=== PATIENT | male | born 1970 | race African-American/Black ===

== ENCOUNTER 2021-09-09 07:32 | Inpatient (IN) | payer SELFPAY ==
[2021-09-09 08:07] LABS: #Eosinphils 0.1 10x3/uL (0.0-0.5); #Monocytes 0.5 10x3/uL (0.0-1.1); #Neutrophils 4.4 10x3/uL (1.5-8.4); %Basophils 0.3 % (0.0-2.0); %Lymphocytes 25.9 % (18.0-47.0); %Monocytes 7.6 % (0.0-10.0); %Neutrophils 63.8 % (40.0-75.0); Hemoglobin 14.7 g/dL (13.5-17.5); Mean Corpuscular HGB CONC 32.8 g/dL (32.0-36.0); Mean Corpuscular Hemoglobin 32.6 pg (27.0-33.0); Mean Corpuscular Volume 99.3 fl (81.2-95.1); Mean Platelet Volume 11.8 fl (7.4-10.4); Platelet Count 160 10x3/uL (150-450); RBC Distribution Width 13.2 % (11.5-14.5); Red Blood Cell (RBC) Count 4.51 10x6/uL (4.32-5.72); White Blood Cell (WBC) Count 6.9 10x3/uL (3.5-10.5)
[2021-09-09 08:56] LABS: CKMB 1.5 ng/mL (0-6.6)
[2021-09-09 09:01] LABS: ALT (SGPT) 32 U/L (8-55); AST (SGOT) 19 U/L (5-34); Albumin 4.1 g/dL (3.5-5.0); Alkaline Phosphatase 51 U/L (40-110); Anion Gap 12 mmol/L (10-20); BUN (Urea Nitrogen) 11 mg/dL (8.4-25.7); Calc. Creatinine Clearance 0 mL/min (70-130); Calcium 9.1 mg/dL (7.8-10.44); Carbon Dioxide 30 mmol/L (22-29); Chloride 103 mmol/L (98-107); Globulin 2.4 g/dL (2.4-3.5); Glucose 170 mg/dL (70-105); Potassium 4.1 mmol/L (3.5-5.1); Protein, Total 6.5 g/dL (6.0-8.3); Sodium 141 mmol/L (136-145)
[2021-09-09] MEDS ORDERED: Furosemide 100 MG/10 ML VIAL ONE (09:11)
[2021-09-09] MEDS ORDERED: Nitroglycerin 0.4 MG TAB (25 Tab Bottle) SL PRN (09:15)
[2021-09-09] MEDS ORDERED: Enoxaparin Sodium 100 MG/ML SYRINGE ONE (09:38)
[2021-09-09] MEDS ORDERED: Aspirin 325 MG TAB ONE (09:39)
[2021-09-09 09:40] LABS: SARS-CoV-2 NAA Rapid Test Not Detected (NotDetected)
[2021-09-09] MEDS ORDERED: Diltiazem 125 MG/25 ML ONE (09:43)
[2021-09-09] MEDS ORDERED: Diltiazem 125 MG in Sodium Chloride 0.9% 100 ML IVPB SCH (10:00)
[2021-09-09] MEDS ORDERED: Digoxin 0.5 MG/2 ML AMP SLOW IVP SCH ×2 (11:45→14:15)
[2021-09-09 12:44] LABS: Magnesium 1.7 mg/dL (1.6-2.6)
[2021-09-09 12:47] LABS: Troponin I 0.084 ng/mL (< 0.028)
[2021-09-09] MEDS ORDERED: Furosemide 40 MG/4 ML VIAL SLOW IVP SCH (14:00)
[2021-09-09] MEDS ORDERED: Metoprolol Tartrate 5 MG/5 ML VIAL IVP SCH (14:15)
[2021-09-09] MEDS ORDERED: Magnesium 2 GM/50 ML 2 GM in Sodium Chloride 0.9% 100 ML IVPB SCH (15:00)
[2021-09-09] MEDS ORDERED: Magnesium 2 GM/50 ML BAG (IN WATER) ONE (15:01)
[2021-09-09] MEDS ORDERED: Sodium Chloride 0.9% 100 ML ONE (15:02)
[2021-09-09] MEDS: Diltiazem 125 MG in Sodium Chloride 0.9% 100 ML IVPB SCH ×2 (17:22→20:14)
[2021-09-09] MEDS: Carvedilol 6.25 MG TAB PO SCH (17:35)
[2021-09-09] MEDS ORDERED: Magnesium 2 GM/50 ML 2 GM in Premix Bag 1 BAG IVPB SCH (18:00)
[2021-09-09 18:08] LABS: Hemoglobin A1c 6.5 % (4.0-6.0)
[2021-09-09] MEDS: Apixaban 5 MG TAB PO SCH (19:59)
[2021-09-09] MEDS ORDERED: Enoxaparin Sodium 80 MG/0.8 ML SYRINGE SC SCH (21:00)
[2021-09-09] MEDS ORDERED: Enoxaparin Sodium 120 MG/0.8 ML SYRINGE SC SCH (21:00)
[2021-09-10 04:03] LABS: #Eosinphils 0.2 10x3/uL (0.0-0.5); #Monocytes 0.7 10x3/uL (0.0-1.1); #Neutrophils 3.9 10x3/uL (1.5-8.4); %Basophils 0.5 % (0.0-2.0); %Eosinophils 3.5 % (0.0-6.0); %Lymphocytes 22.3 % (18.0-47.0); %Monocytes 10.6 % (0.0-10.0); %Neutrophils 62.8 % (40.0-75.0); Hemoglobin 13.8 g/dL (13.5-17.5); Mean Corpuscular HGB CONC 32.6 g/dL (32.0-36.0); Mean Corpuscular Hemoglobin 32.9 pg (27.0-33.0); Mean Corpuscular Volume 100.7 fl (81.2-95.1); Mean Platelet Volume 11.9 fl (7.4-10.4); Platelet Count 164 10x3/uL (150-450); RBC Distribution Width 13.2 % (11.5-14.5); White Blood Cell (WBC) Count 6.2 10x3/uL (3.5-10.5)
[2021-09-10 04:14] LABS: ALT (SGPT) 29 U/L (8-55); AST (SGOT) 19 U/L (5-34); Albumin 3.9 g/dL (3.5-5.0); Alkaline Phosphatase 52 U/L (40-110); Anion Gap 11 mmol/L (10-20); BUN (Urea Nitrogen) 11 mg/dL (8.4-25.7); Bilirubin, Total 1.6 mg/dL (0.2-1.2); Calc. Creatinine Clearance 171 mL/min (70-130); Calcium 8.8 mg/dL (7.8-10.44); Carbon Dioxide 33 mmol/L (22-29); Cardiac Risk 5.6 (Less than 4.5); Chloride 102 mmol/L (98-107); Cholesterol 169 mg/dl (< 200 Desired); Globulin 2.4 g/dL (2.4-3.5); Glucose 157 mg/dL (70-105); HDL Cholesterol 30 mg/dL (>60 Neg Risk); LDL Cholesterol, Calculated 113 mg/dL; Potassium 4.3 mmol/L (3.5-5.1); Protein, Total 6.3 g/dL (6.0-8.3); Sodium 142 mmol/L (136-145); Triglycerides 132 mg/dL (Less than 150)
[2021-09-10 04:18] LABS: Prothrombin Time 11.1 sec (9.5-12.1)
[2021-09-10] MEDS: Aspirin Chewable 81 MG TAB PO SCH (08:03)
[2021-09-10] MEDS: Apixaban 5 MG TAB PO SCH ×2 (08:03→21:42)
[2021-09-10] MEDS: Carvedilol 6.25 MG TAB PO SCH (08:03)
[2021-09-10] MEDS ORDERED: PROPOFOL 0 ML ONE (08:47)
[2021-09-10] MEDS ORDERED: Ketamine 50 MG/ML (10ML VIAL) ONE (08:56)
[2021-09-10] MEDS ORDERED: Midazolam HCl 2 mg/2 ml Vial ONE (08:57)
[2021-09-10] MEDS ORDERED: Lisinopril 5 MG TAB PO SCH (09:00)
[2021-09-10] MEDS ORDERED: Amiodarone 200 MG TAB PO SCH ×2 (11:15→21:00)
[2021-09-10] MEDS: Carvedilol 12.5 MG TAB PO SCH (17:41)
[2021-09-10] MEDS ORDERED: FLU VACC QS2021-22(6MOS UP)/PF 60 MCG/0.5 ML SYRINGE IM ONE (18:30)
[2021-09-10] MEDS ORDERED: Atorvastatin Calcium 40 MG TAB PO SCH (21:00)
[2021-09-10] MEDS: Amiodarone 200 MG TAB PO SCH (21:43)
[2021-09-11] MEDS ORDERED: Melatonin 3 MG TAB PO SCH (02:15)
[2021-09-11 05:36] LABS: Anion Gap 11 mmol/L (10-20); BUN (Urea Nitrogen) 16 mg/dL (8.4-25.7); Calc. Creatinine Clearance 188 mL/min (70-130); Calcium 8.7 mg/dL (7.8-10.44); Carbon Dioxide 32 mmol/L (22-29); Chloride 101 mmol/L (98-107); Glucose 146 mg/dL (70-105); Magnesium 1.9 mg/dL (1.6-2.6); Potassium 4.1 mmol/L (3.5-5.1); Sodium 140 mmol/L (136-145)
[2021-09-11 06:41] VITALS: BMI 61.8
[2021-09-11] MEDS: Carvedilol 12.5 MG TAB PO SCH (08:56)
[2021-09-11] MEDS: Aspirin Chewable 81 MG TAB PO SCH (08:56)
[2021-09-11] MEDS: Apixaban 5 MG TAB PO SCH (08:56)
[2021-09-11] MEDS: Amiodarone 200 MG TAB PO SCH (08:57)
[2021-09-11] MEDS ORDERED: Lisinopril 10 MG TAB PO SCH (09:00)
[2021-09-11 13:17] VITALS: BP 132/63; TEMP 98.8
== END 2021-09-11 17:10 | disposition home or self-care (01) | DRG 308 ==
LOC: CSHERS 07:32 → CSHIMCU 11:38 → CSHTELE 09-10 21:22
PROVIDERS: ADMIT Family Medicine; ATTEND Family Medicine
PROC: 5A2204Z Restoration of Cardiac Rhythm, Single (ICD-10-PCS; principal; 2021-09-10)
DX: I48.3 Typical atrial flutter (principal); I50.23 Acute on chronic systolic (congestive) heart failure; Z68.44 Body mass index [BMI] 60.0-69.9, adult; I11.0 Hypertensive heart disease with heart failure; E11.9 Type 2 diabetes mellitus without complications; Z20.822 Contact with and (suspected) exposure to COVID-19; E66.01 Morbid (severe) obesity due to excess calories; F17.290 Nicotine dependence, other tobacco product, uncomplicated; Z91.14 Patient's other noncompliance with medication regimen
CPT/HCPCS: 36415; 71045; 80048; 80053; 80061; 82553; 83036; 83735; 83880; 84443; 84484; 85025; 85610; 85730; 92960; 93005; 93010; 93306; 93312; 94760; 97139; J1160; J1650; J1940; J2250; J2704; J3475; J3490; U0002